=== PATIENT | female | born 1965 | race Caucasian/White ===

== ENCOUNTER 2018-12-22 05:43 | Day surgery (SDC) | payer BC ==
[2018-12-22] MEDS ORDERED: MIDAZOLAM INJ 2 MG/2 ML VIAL ONE (06:52)
[2018-12-22] MEDS ORDERED: LACTATED RINGERS 1,000 ML ONE (07:00)
--- NOTE | 2018-12-22 09:21 | OP ---
DATE OF PROCEDURE: 12/22/18 PREOPERATIVE DIAGNOSIS: 1. High-risk colon cancer screening. The patient has a family history of polyps in both her mother and her father and a family history of colon cancer in her maternal grandfather. This is the patient's first colonoscopy. POSTOPERATIVE DIAGNOSIS: 1. Ascending colon polyp. 2. Diverticulosis. 3. Internal and external hemorrhoids. 4. Skin tags. PROCEDURE: 1. Colonoscopy plus polypectomy. SURGEON: Low Guillory MD. COMPLICATIONS: None apparent. BLOOD LOSS: None. MEDICATIONS: Monitored anesthesia care. DESCRIPTION OF PROCEDURE: Informed consent was obtained prior to sedation. The preprocedure cardiopulmonary assessment was satisfactory. The patient was placed in the left lateral decubitus position and was sedated by the SUPERINTENDENT. A digital rectal exam reveals non-thrombosed external hemorrhoids and skin tags. There were no rectal masses appreciated on the digital rectal exam. The tip of the Olympus colonoscope was inserted in the rectum and guided easily over to the cecum. The cecum was identified by locating the ileocecal valve and appendiceal orifice. Pictures of both were taken. A retroflexed view of the right colon was obtained. Prep was good. The mucosa of the cecum, ascending colon, hepatic flexure, splenic flexure, descending colon and sigmoid colon was closely examined. Direct and retroflexed views of the rectum were obtained. The patient had a tiny polyp in the proximal ascending colon. It was recognized by seeing a mucus cap over it. It was about 3 mm in size. This is consistent with a sessile serrated adenoma with mucus cap. This was removed with a cold snare and recovered. The patient had some sigmoid diverticulosis and internal hemorrhoids. Otherwise, the colonoscopy was unremarkable. RECOMMENDATIONS: 1. Followup on the polyp pathology. 2. Because of her family history, she needs a followup colonoscopy in 5 years. 3. Followup with me in the office p.r.n. #[id number] cc: MD Edenilson Bonds MD MTDD
[2018-12-22] MEDS ORDERED: diphenhydrAMINE HCL 50 MG/ML VIAL IV ONE (10:00)
[2018-12-22] MEDS ORDERED: PROPOFOL 200 MG/20 ML VIAL IV ONE (10:00)
[2018-12-22] MEDS ORDERED: ePHEDrine SULF 50 MG/ML IV ONE (10:00)
[2018-12-22] MEDS ORDERED: DEXAMETHASONE INJ 10 MG/ML VIAL IV ONE (10:00)
[2018-12-22] MEDS ORDERED: LIDOCAINE 1% 10 ML VIAL INJ ONE (10:00)
[2018-12-22 11:55] VITALS: BP 140/78; TEMP 98.4; O2SAT 100
== END 2018-12-22 09:48 | disposition home or self-care (01) ==
LOC: AMB 05:43
PROVIDERS: ATTEND Internal Medicine Gastroenterology
DX: Z12.11 Encounter for screening for malignant neoplasm of colon (principal); D12.2 Benign neoplasm of ascending colon; K57.30 Diverticulosis of large intestine without perforation or abscess without bleeding; K64.8 Other hemorrhoids; K64.4 Residual hemorrhoidal skin tags; Z88.1 Allergy status to other antibiotic agents; Z88.0 Allergy status to penicillin; Z83.71 Family history of colonic polyps; Z80.0 Family history of malignant neoplasm of digestive organs
CPT/HCPCS: 00812; 45385; J1100; J1200; J2250; J3490; J7120

== ENCOUNTER → 2020-07-16 | Outpatient (CLI) | payer BC | LOC: YCFC.O 11:29 | PROVIDERS: ATTEND Nurse Practitioner Family | DX: Z20.828 Contact with and (suspected) exposure to other viral communicable diseases (principal) ==